=== PATIENT | male | born 1945 | race Caucasian/White ===

== ENCOUNTER 2016-10-23 06:23 | Day surgery (SDC) | payer BC, OTHER ==
[~2016-10-23 06:23] MED LIST: KETOROLAC TROMETHAMINE 0.45% 4 DROP/0.4 ML DROPERETTE OS PRN; TETRACAINE HCL 0.5% OPH SOLN 0.6 ML DROPERETTE OS PRN
[2016-10-23] MEDS ORDERED: MIDAZOLAM 2 MG/2 ML INJ ONE (06:31)
[2016-10-23] MEDS ORDERED: FENTANYL CITRATE INJ/PF 100 MCG/2 ML AMPUL ONE (06:31)
[2016-10-23] MEDS: TROPICAMIDE 1% OPH SOLN 3 ML OS PRN ×3 (06:48→07:08)
[2016-10-23] MEDS: BESIFLOXACIN HCL 0.6% OPH SUSP 5 ML BOTTLE OS PRN ×4 (06:48→08:01)
[2016-10-23] MEDS: CYCLOPENTOLATE 0.2%/PHENYLEPHRINE 1% OPH SOLN 2 ML OS PRN ×3 (06:48→07:08)
[2016-10-23] MEDS: TETRACAINE HCL 0.5% OPH SOLN 2 ML OS PRN ×3 (06:49→07:38)
[2016-10-23] MEDS ORDERED: EPINEPHRINE INJ/PF 1 MG/1 ML AMPULE ONE (07:13)
[2016-10-23] MEDS ORDERED: LIDOCAINE 1% INJ-PF (10 MG/ML) 30 ML SDV ONE (07:13)
[2016-10-23] MEDS ORDERED: CHONDR SU A NA/HYALUR INTRAOC KIT (SURGICARE) ONE (07:13)
--- NOTE | 2016-10-23 12:19 | [facility] OPERATIVE REPORT E ---
[facility] Operative Report NAME: LUKE RICE AGE: 70Y DATE OF SURGERY: ROOM: PREOPERATIVE DIAGNOSIS: CATARACT, LEFT EYE. POSTOPERATIVE DIAGNOSIS: CATARACT, LEFT EYE. OPERATION: Cataract extraction with intraocular lens implant of the left eye. SURGEON: JUNITO VALLADARES M.D. ANESTHESIA: Topical. PROCEDURE: After obtaining appropriate consent, the patient's left eye was prepped and draped in sterile fashion as well as the surgeon in a sterile manner and cataract surgery was started. First a paracentesis blade was used to make a small side-port incision. Viscoelastic was used to inflate the anterior chamber. Next a 2.4 mm incision was made with the paracentesis blade. A continuous capsulorrhexis incision was made using a cystotome and Utrata forceps. Following this hydrodissection was carried out to make the lens fully loose and mobile and it was rotated 90 degrees. Following this, a nudmnh-fzs-wgzparg technique was used to phacoemulsify the lens . The remaining cortex was removed with irrigation/aspiration. Provisc was instilled into the capsular bag to inflate the bag. A SN60WF, 20.5 diopter lens was placed. The remaining viscoelastic material was removed with irrigation/aspiration. Following this, a 10-0 nylon suture was used to close the incision and it was found to be watertight. Vigamox was instilled in the eye and a protective shield was placed over the eye. The patient returned to the postoperative recovery in stable condition. DICTATING PHYSICIAN: JUNITO VALLADARES M.D. [id number] PHY#: [id number] ID: [id number] JOB#: [id number] ACCT: [id number] cc:JUNITO VALLADARES M.D. > MTDD
--- NOTE | 2016-10-23 12:24 | [facility] DISCHARGE SUMMARY E ---
[facility] Discharge Summary NAME: LUKE RICE AGE: 70Y ADMITTED: 10/23/2016 DISCHARGED: HISTORY: This is a 70-year-old male who underwent cataract extraction of the left eye. He underwent surgery. He was having difficulty driving at night secondary to glare from headlights and trouble seeing his wood work. DIAGNOSIS: Cataract, left eye. DISCHARGE INSTRUCTIONS: He should be on a regular diet, no bending at his waist, no heavy lifting. He should use Besivance, Ilevro, and Durezol at 3 p.m. and 8 p.m., and sleep with a rigid shield. I will see him for his 1-day postoperative tomorrow. DICTATING PHYSICIAN: JUNITO VALLADARES M.D. [id number] PHY#: [id number] ID: [id number] JOB#: [id number] ACCT: [id number] cc:JUNITO VALLADARES M.D. >
== END 2016-10-23 08:50 | disposition home or self-care (01) ==
LOC: SC 06:23
PROVIDERS: ATTEND Internal Medicine
PROC: 08RK3JZ Replacement of Left Lens with Synthetic Substitute, Percutaneous Approach (ICD-10-PCS; principal; 2016-10-23 07:30)
DX: H25.12 Age-related nuclear cataract, left eye (principal); Z96.1 Presence of intraocular lens; H26.491 Other secondary cataract, right eye; H04.123 Dry eye syndrome of bilateral lacrimal glands; I10 Essential (primary) hypertension; I25.2 Old myocardial infarction; Z79.899 Other long term (current) drug therapy; Z79.82 Long term (current) use of aspirin; Z95.1 Presence of aortocoronary bypass graft
CPT/HCPCS: 66984; V2632; J2250; J3490 ×2; J0171; J3010; 142

== ENCOUNTER 2018-08-10 00:14 | Emergency (ER) | payer BC, MEDICARE ==
[2018-08-10] MEDS ORDERED: ASPIRIN 81 MG TABLET, CHEWABLE PO ONE (00:20)
[2018-08-10] MEDS ORDERED: MORPHINE SULFATE 10 MG/ML INJ IV PRN (00:21)
[2018-08-10] MEDS: NITROGLYCERIN 0.4 MG/TAB 25 TAB/BOTTLE SL PRN ×2 (00:22→00:31)
--- NOTE | 2018-08-10 00:27 | ER Document Report ---
ED General - General Stated Complaint: CHEST PAIN Time Seen by Provider: 08/10/18 00:19 Primary Care Provider: SANDI MARTINEZ MD [Primary Care Provider] - Follow up as needed Notes: Patient is a 72-year-old male past medical history of hypertension, hyper lipidemia, coronary artery disease status post three-vessel bypass in [place] 5 years ago, presents with acute onset of right-sided chest pain radiating to the right shoulder with associated nausea and vomiting. Patient states that his symptoms started at approximately 2000, have been ongoing since that time. States the pain is a severe, throbbing, constant pain to the affected areas. He tried taking a muscle relaxer without any relief. States this does feel somewhat similar to when he had a myocardial infarction in the past. 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 States that he has had associated mild shortness of breath. TRAVEL OUTSIDE OF THE [place] IN LAST 30 DAYS: No - Related Data Allergies/Adverse Reactions: No Known Allergies Allergy (Verified 08/10/18 02:37) Past Medical History - General Information source: Patient - Social History Smoking Status: Never Smoker Frequency of alcohol use: None Drug Abuse: None Lives with: Spouse/Significant other Family History: Reviewed & Not Pertinent, CAD, Malignancy - Past Medical History Cardiac Medical History: Reports: Hx Coronary Artery Disease, Hx Heart Attack - 2011, Hx Hypercholesterolemia - Probable hyperlipidemia., Hx Hypertension Denies: Hx DVT, Hx Pulmonary Embolism Pulmonary Medical History: Denies: Hx Asthma, Hx COPD Neurological Medical History: Denies: Hx Cerebrovascular Accident, Hx Seizures Endocrine Medical History: Denies: Hx Diabetes Mellitus Type 1, Hx Diabetes Mellitus Type 2, Hx Hyperthyroidism, Hx Hypothyroidism GI Medical History: Denies: Hx Cirrhosis, Hx Gastroesophageal Reflux Disease, Hx Hepatitis, Hx Hiatal Hernia, Hx Ulcer Musculoskeletal Medical History: Denies Hx Arthritis Skin Medical History: Reports Hx Psoriasis Psychiatric Medical History: Denies: Hx Depression Infectious Medical History: Denies: Hx Hepatitis Past Surgical History: Reports: Hx Cardiac Surgery - Triple bipass, Hx Coronary Artery Bypass Graft, Hx Open Heart Surgery - 2011. Denies: Hx Pacemaker - Immunizations Hx Diphtheria, Pertussis, Tetanus Vaccination: Yes Review of Systems - Review of Systems Notes: Constitutional: Negative for fever. HENT: Negative for sore throat. Eyes: Negative for visual changes. Cardiovascular: Positive for chest pain. Respiratory: Positive for shortness of breath. Gastrointestinal: Negative for abdominal pain, positive for nausea and vomiting Genitourinary: Negative for dysuria. Musculoskeletal: Negative for back pain. Skin: Negative for rash. Neurological: Negative for headaches, weakness or numbness. 10 point ROS negative except as marked above and in HPI. Physical Exam - Vital signs Vitals: Temp Pulse Resp BP Pulse Ox 98.6 F 53 L 12 218/92 H 99 08/10/18 00:15 08/10/18 00:15 08/10/18 00:15 08/10/18 00:15 08/10/18 00:15 Interpretation: Hypertensive, Bradycardic Notes: PHYSICAL EXAMINATION: GENERAL: Appears moderately uncomfortable HEAD: Atraumatic, normocephalic. EYES: Pupils equal round and reactive to light, extraocular movements intact, sclera anicteric, conjunctiva are normal. ENT: nares patent, oropharynx clear without exudates. Moist mucous membranes. NECK: Normal range of motion, supple without lymphadenopathy LUNGS: Breath sounds clear to auscultation bilaterally and equal. No wheezes rales or rhonchi. HEART: Regular rate and rhythm without murmurs ABDOMEN: Soft, nontender, normoactive bowel sounds. No guarding, no rebound. No masses appreciated. EXTREMITIES: Normal range of motion, no pitting or edema. No cyanosis. NEUROLOGICAL: No focal neurological deficits. Moves all extremities spontaneously and on command. PSYCH: Normal mood, normal affect. SKIN: Warm, mildly diaphoretic normal turgor, no rashes or lesions noted. Course - Re-evaluation Re-evalutation: 08/10/18 00:21 Patient presents with a chest pain history worrisome for ACS. Right-sided chest pain described as a severe pressure radiating into the right upper extremity with associated nausea and vomiting. Patient was called as a medical alert as he presented to the hospital main lobby doors with concerned that his pain felt similar to when he had a OR in the past. Patient is nontoxic in appearance although does appear uncomfortable. I came to the bedside immediately upon patient's arrival given history. His initial EKG pattern is highly concerning for left main occlusion with 1mm elevation in aVR 08/10/18 00:31 I have contacted [facility] and requested consultation with cardiology to review my concerns of a possible left main occlusion which is often considered a STEMI equivalent. The EKG has been faxed. I started the patient on heparin infusion. Will continue to monitor very closely. 08/10/18 01:02 I have discussed this case with Dr. Squires the plating and point assembly supervisor at [facility]. I did express my concerns about the possibility of the left main occlusion based on initial EKG showing aVR elevation and multiple areas of ST depression. I did also note that a repeat EKG has shown normalization of the ST depressions and almost complete normalization of the elevation in aVR after administration of nitroglycerin. Patient's pain is down to a 2/5 down from 5/5 when he first arrived. No longer feeling nauseated, no longer diaphoretic. Blood pressure is likewise improved. He did advise that we continue standard NSTEMI protocol as opposed to running the patient as a STEMI. The patient has been initiated on heparin infusion, OR protocol, has received atorvastatin, aspirin. I did speak with the nurse practitioner Cedric who is covering and has accepted the patient to the cardiology service. I have updated the patient on his care, he is in agreement with man agement plan. 08/10/18 01:10 Patient continues to have 2-3 out of 5 chest pain. Nitroglycerin infusion will be initiated at 40 mg/min initial dosing. 08/10/18 02:34 Patient's pain continues to be much improved on nitroglycerin infusion. We will obtain a repeat troponin. Awaiting transfer. 08/10/18 03:20 Troponin elevated to 0.413. Patient remains much improved in terms of his chest pain. Transport has arrived and patient is appropriate for transfer at this time. - Vital Signs Vital signs: Temp Pulse Resp BP Pulse Ox 98.6 F 53 L 16 128/65 H 96 08/10/18 00:15 08/10/18 00:15 08/10/18 03:11 08/10/18 03:11 08/10/18 03:11 - Laboratory Result Diagrams: 08/10/18 00:15 08/10/18 00:15 Laboratory results interpreted by me: 08/10/18 08/10/18 00:15 00:15 WBC 13.0 H RBC 5.73 H Hgb 17.6 H Seg Neutrophils % 85.3 H Lymphocytes % 11.1 L Absolute Neutrophils 11.1 H BUN 21 H Glucose 220 H - Diagnostic Test Radiology reviewed: Image reviewed, Reports reviewed Radiology results interpreted by me: 08/10/18 01:03 Chest x-ray: No acute infiltrate or pneumothorax - EKG Interpretation by Me Additional EKG results interpreted by me: 08/10/18 01:03 EKG 1: 1 mm elevation in aVR, ST depressions in V3 through 6 as well as in leads II and I. Rate 61. QTC 395. EKG 2: Sinus rhythm, rate 52. ST depressions have resolved in V3 through 6. Elevations in aVR have mostly resolved Critical Care Note - Critical Care Note Total time excluding time spent on procedures (mins): 40 Comments: Critical care time spent obtaining history from patient or surrogate, discussions with consultants, development of treatment plan with patient or surrogate, evaluation of patient's response to treatment, examination of patient, ordering and performing treatments and interventions, ordering and review of laboratory studies, re-evaluation of patient's condition, ordering and review of radiographic studies and review of old charts Discharge - Discharge Clinical Impression: NSTEMI (non-ST elevated myocardial infarction) CAD (coronary artery disease) Qualifiers: Coronary Disease-Associated Artery/Lesion type: unspecified vessel or lesion type [place] vs. transplanted heart: [place] heart Associated angina: with unspecified angina Qualified Code(s): I25.119 - Atherosclerotic heart disease of [place] coronary artery with unspecified angina pectoris Nausea and vomiting Qualifiers: Vomiting type: unspecified Vomiting Intractability: non-intractable Qualified Code(s): R11.2 - Nausea with vomiting, unspecified Condition: Fair Disposition: [facility] Referrals: SANDI MARTINEZ MD [Primary Care Provider] - Follow up as needed
[2018-08-10 00:29] LABS: ABSOLUTE LYMPHOCYTES (AUTO) 1.4 10^3/uL (0.5-4.7); ABSOLUTE MONOCYTES (AUTO) 0.4 10^3/uL (0.1-1.4); ABSOLUTE NEUT (AUTO) 11.1 10^3/uL (1.7-8.2); BASOPHILS % (AUTO) 0.2 % (0-2); EOSINOPHILS % (AUTO) 0.2 % (0-6); HEMATOCRIT 50.2 % (37.9-51.0); HEMOGLOBIN 17.6 g/dL (13.5-17.0); LYMPHOCYTES % (AUTO) 11.1 % (13-45); MEAN CORPUSCULAR HEMOGLOBIN 30.7 pg (27.0-33.4); MEAN CORPUSCULAR HGB CONC 35.1 g/dL (32.0-36.0); MEAN CORPUSCULAR VOLUME 88 fl (80-97); MONOCYTES % (AUTO) 3.2 % (3-13); PLATELET COUNT 151 10^3/uL (150-450); RED BLOOD COUNT 5.73 10^6/uL (4.35-5.55); RED CELL DISTRIBUTION WIDTH 13.9 % (11.5-14.0); SEGMENTED NEUTROPHILS % (AUTO) 85.3 % (42-78); TOTAL CELLS COUNTED % (AUTO) 100 %
[2018-08-10] MEDS ORDERED: HEPARIN SODIUM,PORCINE/D5W 25,000 UNIT/250 ML RTUINJ IV PRN (00:33)
[2018-08-10] MEDS ORDERED: HEPARIN SOD (PORCINE) 1,000 UNIT/ML 10 ML VIAL IV ONE (00:33)
[2018-08-10] MEDS ORDERED: ATORVASTATIN CALCIUM 80 MG TABLET PO ONE (00:33)
[2018-08-10 00:42] LABS: ANION GAP 15 (5-19); BLOOD UREA NITROGEN 21 mg/dL (7-20); CALCIUM 9.8 mg/dL (8.4-10.2); CARBON DIOXIDE 26 mmol/L (22-30); CHLORIDE 99 mmol/L (98-107); GLUCOSE 220 mg/dL (75-110); SODIUM 139.7 mmol/L (137-145)
--- NOTE | 2018-08-10 00:57 | RADIOLOGY REPORT (SQ) ---
EXAM DESCRIPTION: XR CHEST 1 VIEW COMPLETED DATE/TME: 08/10/2018 00:21 CLINICAL HISTORY: 72 years, Male, cp COMPARISON: X-ray chest 02/03/2016 NUMBER OF VIEWS: TECHNIQUE: LIMITATIONS: None. FINDINGS: No evidence of pulmonary infiltrate or pleural effusion. The heart is normal in size. Pulmonary vascularity appears normal. There is evidence of prior coronary artery bypass surgery. The most superior sternal wire is broken. There is no significant change, as compared with the prior x-rays. IMPRESSION: No acute finding. copyright 2010 [employer]- All Rights Reserved
[2018-08-10] MEDS ORDERED: NITROGLYCERIN/D5W 50 MG/250 ML RTUINJ IV PRN (01:10)
[2018-08-10] MEDS ORDERED: NITROGLYCERIN/D5W 50 MG/250 ML RTUINJ IV ONE (01:11)
[2018-08-10 01:23] LABS: INTERNATIONAL RATION (INR) 0.88; PROTHROMBIN TIME 12.4 SEC (11.4-15.4)
[2018-08-10 01:24] LABS: PARTIAL THROMBOPLASTIN TIME 29.7 SEC (23.5-35.8)
[2018-08-10 03:20] VITALS: BP 134/70
--- NOTE | 2018-08-10 11:10 | EKG REPORT ---
SEVERITY:- ABNORMAL ECG - BORDERLINE INFERIOR Q WAVES NONSPECIFIC REPOL ABNORMALITY, DIFFUSE LEADS SINUS BRADYCARDIA : Confirmed by: Neeru Zapien MD 10-Aug-2018 11:10:09
--- NOTE | 2018-08-10 11:12 | EKG REPORT ---
SEVERITY:- ABNORMAL ECG - FIRST DEGREE AV BLOCK REPOL ABNRM SUGGESTS ISCHEMIA, DIFFUSE LEADS WANDERING ATRIAL PACEMAKER : Confirmed by: Neeru Zapien MD 10-Aug-2018 11:11:19
== END 2018-08-10 03:27 | disposition short-term general hospital (02) ==
LOC: ER 00:14
DX: I21.4 Non-ST elevation (NSTEMI) myocardial infarction (principal); I25.119 Atherosclerotic heart disease of native coronary artery with unspecified angina pectoris; I10 Essential (primary) hypertension; R11.2 Nausea with vomiting, unspecified; I25.2 Old myocardial infarction; Z95.1 Presence of aortocoronary bypass graft; Z82.49 Family history of ischemic heart disease and other diseases of the circulatory system; R61 Generalized hyperhidrosis
CPT/HCPCS: 93005; 96376; 99291; 96365; 96366; 96368; 36415; 85025; 85610; 85730; 80048; 84484; 71045; 93010; J1644 ×2; A9270 ×2; J2270; J3490